=== PATIENT | male | born 1980 ===

== ENCOUNTER 2017-04-22 14:41 | Outpatient (CLI) | payer BC | END 2017-04-22 14:42 | disposition home or self-care (01) | LOC: LABHHL 14:41 | PROVIDERS: ATTEND Internal Medicine Gastroenterology | DX: K21.9 Gastro-esophageal reflux disease without esophagitis (principal); K30 Functional dyspepsia; R14.0 Abdominal distension (gaseous) | CPT/HCPCS: 88305; 88342 ==